=== PATIENT | male | born 1990 | race Caucasian/White ===

== ENCOUNTER 2021-07-13 08:00 | Outpatient (RCR) | payer OTHER, SELFPAY ==
--- NOTE | 2021-06-29 09:50 | HP.PTEVAL ---
Patient's Visit Information DEONNA MCDANIEL is a 31 year old M referred to Physical Therapy by Dr. Lori Peterson MD with a diagnosis of R hip pain. Date of Evaluation: 06/29/21 Physical Therapist: Robles Mejia, PT, ATC - Visit Plan Frequency: 1x/Week Duration: 2 Weeks Plan: Issued and instructed pt on HEP of R LE stretches. Pt is to continue with them independently for 2 weeks and then follow up if needed for further instruction. - Subjective Pt reports he has had R hip pain since March of 2021. Pt works for a [employer] and notes he has to carry boxes that he often rests on his R hip, and believes this may have provoked it. 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 Pt reports he feels like he loses power when he attempts to go up hills secondary to pain and weakness. Pt reports he has never had pain like this before. Pt denies sleep difficulty secondary to pain. Pt notes he also feels pain when he is attempting to abduct his R hip. Pt reports no tingling or numbness in LE's. Pt reports difficulty with donning/doffing his shoes at times secondary to pain. Pt reports he has had no diagnostic tests performed at this time. 0/10 pain at rest, 6/10 at worst (when he is running) - Pain R hip Pain Intensity (Out of 10): 0 Pain Intensity Range: 6 - Objective Neuro: B LE sensation is WNL to light touch. B patellar reflex= 2/3. MMT: B LE's are 5/5 throughout. ROM: B LE's are WFL. flexibility: Pt is moderately limited with HS's, hip flexors, and IT band flexibility. SPecial tests: No positive orthopedic tests this date. Pos 90/90 test and obers sign indicating limited HS, IT band, and hip flexor flexibility - Balance/Special Test Scores Lower Extremity Functional Score: 68 - Goals Goal 1:: I with HEP in 2 visits Goal Time Frame: 2 Weeks - Rehabilitation Potential Physical Therapy Diagnosis: Pt has R sugey pain and difficulty with running secondary to limited flexibility in the R LE Rehabilitation Potential: Excellent - Anticipated Interventions Patient/Client Instruction: Educate patient on: Condition, Plan of Care For the Purpose of:: To improve self management Therapeutic Exercise to Include: Flexibilty training For the Purpose of:: To decrease pain, To increase ROM Cryotherapy (ice pack, ice massage): Yes For the Purpose of:: To decrease pain Thank you for the opportunity to evaluate your patient. For Medicare and Medicare HMO plans, please review the plan of care and approve it. It will need to be FAXED BACK to us at [phone] for Medicare purposes. For Medicare only, by signing this I certify the plan of care. Please let me know if there are questions or concerns regarding this plan of care. Physician Signature: Date:
--- NOTE | 2021-09-20 10:09 | HP.PT.NRP ---
DEONNA MCDANIEL was seen in my office for initial evaluation on 06/29/21. The following Plan of Care was established for this patient: Initial Frequency: 1x/Week Initial Duration: 2 Weeks Patient/Client Instruction: Educate patient on: Condition, Plan of Care For the Purpose of:: To improve self management Therapeutic Exercise to Include: Flexibilty training For the Purpose of:: To decrease pain, To increase ROM Cryotherapy (ice pack, ice massage): Yes For the Purpose of:: To decrease pain This patient was last seen in our office . Pertinent comments regarding their Physical therapy will appear below: Pt was treated for 2 PT visits for R hip pain through the date of 07/13/21. Pt has not returned today and is therefore discontinued at this time. At this point I will be discontinuing this patient from physical therapy. I would be happy to see this patient again in the future if found appropriate by the physician. Thank you! Robles Mejia, PT, ATC Balance/Gait/Functional tests - Balance/Special Test Scores Lower Extremity Functional Score: 68
== END 2021-07-13 19:00 | disposition home or self-care (01) ==
LOC: PT 08:00
PROVIDERS: PCP Family Medicine; Referring Provider Family Medicine; Visit Provider Family Medicine
DX: M76.30 Iliotibial band syndrome, unspecified leg (principal)
CPT/HCPCS: 97110; 97161; 97530

== ENCOUNTER 2021-10-28 10:33 | Outpatient (CLI) | payer OTHER, SELFPAY ==
--- NOTE | 2021-10-28 10:37 | RAD_ITS ---
STUDY: X-RAY - LEFT ANKLE REASON FOR EXAM: Male, 31 years old. Heel pain. TECHNIQUE: 3 view(s) of the ankle. COMPARISON: None. FINDINGS: Normal visualized distal tibia and fibula. Normal medial and lateral malleoli. Normal tibiotalar articulation and ankle mortise. Os trigonum, a normal variant. Moderate-sized inferior calcaneal spur. The visualized subtalar, talonavicular, calcaneocuboid and tarsal articulations are normal. The soft tissue structures are unremarkable. RAD/Ankle min 3 Views IMPRESSION: Os trigonum, a normal variant. Moderate-sized calcaneal spur. No acute abnormality or erosive changes. Electronically Signed: Isaac Giles MD at 11:02 EST ,
--- NOTE | 2021-10-28 10:38 | RAD_ITS ---
STUDY: X-RAY - LEFT FOOT CLINICAL: Male, 31 years old. Heel pain. TECHNIQUE: 3 view(s) of the foot. COMPARISON: None. FINDINGS: Moderate-sized inferior calcaneal spur. Os trigonum, a normal variant. Normal metatarsi. Mild arthrosis of the MTP and IP joints. The soft tissue structures are unremarkable. RAD/Foot min 3 Views IMPRESSION: Moderate-sized inferior calcaneal spur. Mild arthrosis of the MTP and IP joints. No acute abnormality or erosive changes. Electronically Signed: Isaac Giles MD at 11:06 EST ,
== END 2021-10-28 23:59 | disposition home or self-care (01) ==
LOC: MTRAD 10:35
PROVIDERS: PCP Family Medicine; Referring Provider Family Medicine; Visit Provider Family Medicine
DX: M76.822 Posterior tibial tendinitis, left leg (principal)
CPT/HCPCS: 73610; 73630

== ENCOUNTER 2021-12-24 07:00 | Outpatient (RCR) | payer OTHER, SELFPAY ==
--- NOTE | 2021-11-26 08:45 | HP.PTEVAL ---
Patient's Visit Information DEONNA MCDANIEL is a 31 year old M referred to Physical Therapy by Dr. Lori Peterson MD with a diagnosis of L plantar fibromatosis. Date of Evaluation: 11/26/21 Physical Therapist: Robles Mejia, PT, ATC - Visit Plan Frequency: 2x /Week Duration: 3 Weeks Plan: L foot DTR, manual stretching and mobs, ECC strengthening, US, and HEP - Subjective Pt reports he was descending stairs in September of this year when his foot slipped off one step and his heal slammed into the next step. Pt reports he was in pain for a couple of days, and then the pain seemed to go away for a little while. However, the pain returned shortly after wards and has remained since. Pt notes he is an avid runner, and notes some days he can run without pain, while other days the pain is to great to run. Pt reports the pain is located on the heel and in the mid plantar fascia regions. Pt reports he had x-rays which revealed no fractures at this time. Pt reports he has been taking Aleve and meloxicam which have provided minimal relief. Pt reports occasional sleep difficulty secondary to pain. No pain on the R foot. 2/10 pain at rest, 7/10 pain at rest (he is not able to walk at that time) - Pain L plantar fascia Pain Intensity (Out of 10): 2 Pain Intensity Range: 7 - Objective Neuro: B LE sensation is WNL to light touch. ROM: B ankle DF= 10, PF= 65. MMT: B ankles are 5/5 throughout. Gait: Pt stands with pronation of B feet. Pt demonstrates earyl pronation with stance phase and minimal heel strike - Balance/Special Test Scores Lower Extremity Functional Score: 58 - Goals Goal 1:: Decrease L foot pain x 50% to aid with sleep Goal Time Frame: 2-4 Weeks Goal 2:: Increase L ankle DF ROM x 5 degrees to aid with decreasing pain Goal Time Frame: 2-4 Weeks Goal 3:: I with HEP Goal Time Frame: 2-4 Weeks - Rehabilitation Potential Physical Therapy Diagnosis: Pt has L heel and foot pain secondary to L plantar fibromatosis Rehabilitation Potential: Good - Anticipated Interventions Patient/Client Instruction: Educate patient on: Condition, Plan of Care For the Purpose of:: To improve self management Therapeutic Exercise to Include: Strength training, Balance training, Flexibilty training, Passive ROM, Active ROM For the Purpose of:: To decrease pain, To increase ROM Manual Therapy Techniques to Include: Mobilization, Soft tissue mobilization For the Purpose of:: To decrease pain, To increase ROM Ultrasound (thermal/non thermal): Yes For the Purpose of:: To decrease pain Thank you for the opportunity to evaluate your patient. For Medicare and Medicare HMO plans, please review the plan of care and approve it. It will need to be FAXED BACK to us at [phone] for Medicare purposes. For Medicare only, by signing this I certify the plan of care. Please let me know if there are questions or concerns regarding this plan of care. Physician Signature: Date:
--- NOTE | 2021-12-24 07:32 | HP.PTDCSUM ---
It has been my pleasure to treat DEONNA MCDANIEL referred by Dr. Lori Peterson MD, with the diagnosis of L plantar fibromatosis for a total of 7 visit(s). Discharge Date: Please see the following information for a summary of their discharge status. Subjective: I recieved a cortisone injection yesterday, and I do feel a little better today L plantar fascia Pain Intensity (Out of 10): 0 % Improvement: 30 Objective/Function: L foot pain is 0/10 post injection. L ankle DF ROM 15 degrees. Pt is I with HEP Goal 1:: Decrease L foot pain x 50% to aid with sleep Goal Progress: Goal Met Goal 2:: Increase L ankle DF ROM x 5 degrees to aid with decreasing pain Goal Progress: Progressing Goal 3:: I with HEP Goal Progress: Goal Met Plan: Discharge to HEP If there are questions or concerns regarding this patient's physical therapy, please feel free to call me at [phone]. Thank you for the referral of this patient. Sincerely, Robles Mejia, PT, ATC Balance/Gait/Functional tests - Balance/Special Test Scores Lower Extremity Functional Score: 75
== END 2021-12-24 08:35 | disposition home or self-care (01) ==
LOC: PT 07:00
PROVIDERS: PCP Family Medicine; Referring Provider Family Medicine; Visit Provider Family Medicine
DX: M72.2 Plantar fascial fibromatosis (principal)
CPT/HCPCS: 97035; 97140; 97161; 97164

== ENCOUNTER 2022-01-20 20:11 | Emergency (ER) | payer OTHER, SELFPAY ==
[2022-01-20 20:12] VITALS: BP 124/64; PULSE 70; RESP 16; TEMP 37.2; O2SAT 100; BMI 24.0
--- NOTE | 2022-01-20 20:45 | CT_ITS ---
STUDY: CT BRAIN WITHOUT CONTRAST REASON FOR EXAM: Male, 31 years old. Pain RADIATION DOSAGE (If Supplied By Facility): CTDIvol = ( 44.99 ) mGy, DLP = ( 863.60 ) mGycm TECHNIQUE: Transaxial CT imaging of the brain was performed without administration of intravenous contrast material. Individualized dose optimization techniques were used for this CT. COMPARISON: No relevant priors. FINDINGS: Normal soft tissue structures. Normal calvarium. Normal size ventricles and extra-axial spaces for the patient''s age. Normal white matter tracts of the cerebral hemispheres. Normal basal ganglia and thalami. Normal brainstem. Normal cerebellum. There is no intracranial hemorrhage. There are no findings of an acute ischemic infarction. Normal visualized paranasal sinuses. CT/Brain/Head without Contrast IMPRESSION: No acute abnormal intracranial finding. Electronically Signed: Jonathan Reagan MD at 21:41 EDT ,
[2022-01-20] MEDS: 0.9% Normal Saline 1,000 ML 999 ML IV (20:58)
[2022-01-20] MEDS: DiphenhydrAMINE 50 MG/ML Syringe 25 MG IV (20:58)
[2022-01-20] MEDS: Metoclopramide 10 MG/2 ML Vial IV (20:58)
[2022-01-20 21:06] VITALS: TEMP 39.3
[2022-01-20 21:15] LABS: Absolute Lymphocyte Count 0.34 X10^3/uL (0.83-4.51); Absolute Neutrophil Count 5.7 X10^3/uL (2.0-7.7); Basophil# 0.04 X10^3/uL; Basophil% 0.6 % (0-1); Eosinophil# 0.02 X10^3/uL; Eosinophils% 0.3 % (0-5); Hematocrit 42.3 % (40-54); Hemoglobin 14.5 g/dL (13.0-16.5); Lymphocyte # 0.34 X10^3/ul (0.83-4.51); Lymphocyte % 4.7 % (19-41); Mean Corp Hgb Conc 34.3 g/dL (32-36); Mean Corpuscular Hgb 32.7 pg (27.0-32.0); Mean Corpuscular Volume 95.3 fL (80-94); Mean Platelet Vol. 9.5 fl (6.2-12.0); Monocyte# 1.11 X10^3/uL; Monocyte% 15.4 % (0-10); NRBC Flagged by Analyzer 0 % (0-5); Neutrophil # 5.71 X10^3/uL (2.7-7.7); Neutrophil % 78.9 % (47-70); POSITIVE DIFFERENTIAL YES; Platelet Count 229 K/mm3 (150-450); RBC Distribution Width CV 11.9 % (11.6-14.6); RBC Distribution Width SD 41.7 fl (35.1-43.9); Red Blood Count 4.44 M/mm3 (4.6-6.2); White Blood Count 7.2 K/mm3 (4.4-11.0)
[2022-01-20 21:24] LABS: Differential Indicated SCAN CRITERIA MET
--- NOTE | 2022-01-20 21:26 | EDS_ITS ---
HPI History of Present Illness Chief Complaint: Headache Informant: patient Onset/Context/Timing Onset: Today Context: Gradual Timing: Continuous Quality -Headache: Positive for Similar Prior Headaches Location: Generalized Worsened by: Nothing Relieved by: Nothing Associated Symptoms/Injury Associated Symptoms: Positive for Fever, Nausea and Sore Throat; Negative for Vomiting, Sinus Pressure, Numbness, Tingling, Preceding Aura, Visual Changes, Blurred Vision, Photophobia and Visual Loss Narrative Narrative: Patient presents with a headache that began yesterday. Patient states it is gradually getting worse. Patient states it is generalized over his entire head. Patient states it feels similar to prior migraine headaches. Patient states he has not had a migraine in several years. Patient does admit to a fever. Patient states his temperature was 101 today at home. Patient admits to a sore throat. Patient admits to nausea but denies any vomiting. Patient denies any photophobia or scotoma. Patient states he felt dizzy at home. Patient states he does have some pain in his neck and back. Patient is able to bend his chin down to his chest without difficulty. PFSH PFSH Medical History Migraines Non-smoker Allergy/AdvReac Type Severity Reaction Status Date / Time No Known Allergies Allergy Verified 01/20/22 20:13 Surgical History no surgical history no surgical history Social History Smoking Status: Never smoker ROS ROS ED Constitutional Constitutional ED: Reports fever(s); Denies chills Eyes Eyes: Denies blurry vision or change in vision ENT ENT ED: Reports sore throat; Denies rhinorrhea Cardiovascular Cardiovascular: Denies chest pain or palpitations Respiratory/Chest Respiratory/Chest: Denies cough or dyspnea Gastrointestinal Gastrointestinal: Reports nausea; Denies vomiting Genitourinary Genitourinary ED: Denies dysuria or hematuria Musculoskeletal Musculoskeletal: Reports back pain and neck pain Integumentary Denies abscess or rash Neurologic Neurologic: Reports headache(s); Denies weakness Allergic/Immunologic Allergic/Immunologic ED: Denies mouth swelling or urticaria EXAM Physical Exam Const Vital Signs: 01/20/22 20:12 01/20/22 21:06 Temperature 99.0 F 102.8 F H Temperature Source Temporal Oral Pulse Rate 70 Respiratory Rate 16 Blood Pressure 124/64 H Blood Pressure Mean 84 Pulse Ox 100 Oxygen Delivery Method Room Air Positive well nourished and well developed General Appearance ED: well developed and NAD HEENT Reports moist mucous membranes Neck supple, no meningeal signs and no JVD General: Negative for tenderness Resp normal respiratory effort and clear to auscultation bilaterally Cardio regular rate and regular rhythm GI non-tender and non-distended Auscultation: normoactive bowel sounds Palpation: soft Neuro oriented x3, CN's II-XII intact bilaterally and no sensory deficits noted Sensorium / Orientation: awake and alert Speech: speech normal Motor Exam: strength 5/5 throughout Psych mental status grossly normal MDM MDM MDM Narrative Medical decision making narrative: Patient was given IV fluids, Reglan, and Benadryl. Patient did develop a fever up to 102.8 here. Patient was given a dose of Tylenol for that. CBC was within normal limits. Basic metabolic profile was within normal limits. CT scan of the brain was obtained. There is no acute intracranial abnormality. This was interpreted by the radiologist and reviewed by myself. COVID-19 rapid antigen was obtained and was positive. Influenza A and influenza B swabs were obtained and were negative. Patient was advised of his findings. Patient was instructed to take Tylenol or ibuprofen as needed for his aches or fevers. Patient was instructed to follow-up with his primary care physician in 5 to 7 days. Patient understood and was agreeable with the plan. All questions were answered. Lab Data Attestation: I reviewed the patient's lab results. Labs: Laboratory Results - last 24 hr 01/20/22 01/20/22 20:20 20:20 WBC 7.2 RBC 4.44 L Hgb 14.5 Hct 42.3 MCV 95.3 H MCH 32.7 H MCHC 34.3 RDW Std Deviation 41.7 RDW Coeff of Calderon 11.9 Plt Count 229 MPV 9.5 Immature Gran % (Auto) 0.100 Neut % (Auto) 78.9 H Lymph % (Auto) 4.7 L [place] % (Auto) 15.4 H Eos % (Auto) 0.3 Baso % (Auto) 0.6 Absolute Neuts (auto) 5.7 Absolute Lymphs (auto) 0.34 L Nucleated RBC % 0 Differential Comment SEE COMMENT Platelet Estimate ADEQUATE RBC Morphology N CHROM Anisocytosis RARE Macrocytosis RARE Sodium 137 Potassium 3.9 Chloride 101 Carbon Dioxide 26.0 Anion Gap 10 BUN 19 H Creatinine 1.04 Estim Creat Clear Calc 105.29 Est GFR (MDRD) Af Amer 106 Est GFR (MDRD) Non-Af 88 BUN/Creatinine Ratio 18.3 Glucose 86 Calcium 9.1 Radiography Diagnostic Testing: Clinical Impression(s) from Imaging Studies Brain CT 01/20/22 20:45 IMPRESSION: No acute abnormal intracranial finding. Electronically Signed: Jonathan Reagan MD at 21:41 EDT , Discharge Plan Triage Chief Complaint: Headache ED Provider: Ry Estrada Dx/Rx/DC Orders Clinical Impression: COVID-19 Instructions: Coronavirus Disease 2019 (COVID-19): Caring for Yourself or Others, ED Headache Unspecified Primary Care Provider: Lori Peterson Referrals: Lori Peterson MD [Primary Care Provider] - 5-7 Days Disposition Disposition: Home, Self Care
[2022-01-20 21:28] LABS: Anion Gap 10 (5-15); BUN 19 mg/dL (7-18); BUN/Creat Ratio 18.3 RATIO (10-20); Calcium,Total 9.1 mg/dL (8.5-10.1); Chloride 101 mmol/L (98-107); Creatinine, Serum 1.04 mg/dL (0.70-1.30); EST Glomerular Filtration Rate 88 mL/min (>60); Est Glom Filt Rate - Afr Amer 106 mL/min (>60); Estimated Creatinine Clearance 105.29 ml/min; Glucose 86 mg/dL (74-106); Potassium 3.9 mmol/L (3.5-5.1); Sodium Level 137 mmol/L (136-145)
[2022-01-20] MEDS: Acetaminophen 500 MG Tablet 1000 MG PO (21:35)
[2022-01-20 21:46] LABS: Platelet Estimate ADEQUATE (ADEQ)
[2022-01-20 21:47] LABS: Anisocytosis RARE; Macrocytosis RARE; Red Cell Morphology N CHROM NORMAL (NORM C&C)
[2022-01-20 22:29] VITALS: BP 120/72; PULSE 98; RESP 18; TEMP 38.3; O2SAT 97
== END 2022-01-20 22:31 | disposition home or self-care (01) ==
PROVIDERS: Emergency Provider Emergency Medicine; PCP Family Medicine; Visit Provider Emergency Medicine
DX: U07.1 COVID-19 (principal)
CPT/HCPCS: 70450; 80048; 85025; 87428; 96361; 96374; 96375; 99283; J7030; A4216

== ENCOUNTER 2023-11-05 12:01 | Emergency (ER) | payer OTHER, SELFPAY ==
[2023-11-05 12:02] VITALS: BP 123/82; PULSE 61; RESP 18; TEMP 36.6; O2SAT 100; BMI 25.2
--- NOTE | 2023-11-05 12:11 | EDS_ITS ---
HPI <ALYSE Patel - Last Filed: 11/05/23 13:26> History of Present Illness Chief Complaint: Cough Narrative Narrative: 33-year-old male with no PMH has had 1 week of subjective fever, chills, congestion, productive cough, nausea and bodyaches. His coworker had influenza B. He has tried [id number] Mucinex and Tylenol/Aleve. He took an old Z- Kevin he had on hand and thought his congestion/cough improved but now he is coughing again. No shortness of breath. PFSH <ALYSE Patel - Last Filed: 11/05/23 13:26> PFSH Medical History Migraines Non-smoker Home Medications ondansetron 4 mg disintegrating tablet 4 mg PO Q8H PRN PRN Nausea #12 tabs 11/05/23 [Rx Last Taken Unknown] Allergy/AdvReac Type Severity Reaction Status Date / Time No Known Allergies Allergy Verified 11/05/23 12:03 Social History Smoking Status: Never smoker ROS <ALYSE Patel - Last Filed: 11/05/23 13:26> ROS ED ROS Narrative Constitutional: Positive for fever, chills, malaise. CVS: Negative for chest pain. Respiratory: Positive for cough. GI: Positive for nausea. No abdominal pain, vomiting. EXAM <ALYSE Patel - Last Filed: 11/05/23 13:26> Physical Exam Narrative Exam Narrative: CONST: Patient sitting in no acute distress. EYES: Normal inspection. ENT: Moist mucous membranes, mucus drainage in posterior oropharynx, no tonsillar swelling or exudate, midline uvula. Nares clear. NECK: Normal inspection. No meningismus. RESP: No respiratory distress, CTAB. CVS: Regular rate and rhythm, no murmur, no gallop. SKIN: Color normal, no rash, warm, dry, intact. EXTREMITIES: Normal appearance, no pedal edema. NEURO: Oriented x4. PSYCH: Normal affect. Const Vital Signs: 11/05/23 12:02 11/05/23 12:22 11/05/23 13:26 Temperature 97.9 F 98.3 F Temperature Source Temporal Pulse Rate 61 64 Respiratory Rate 18 16 Respiratory Effort Normal Non-Labored Respiratory Depth Normal Respiratory Pattern Normal Blood Pressure 123/82 H 118/80 Blood Pressure Mean 95 92 Pulse Ox 100 98 Oxygen Delivery Method Room Air Room Air <Dr. Kevon Hyde MD - Last Filed: 11/05/23 15:16> Physical Exam Const Vital Signs: 11/05/23 12:02 11/05/23 12:22 11/05/23 13:26 Temperature 97.9 F 98.3 F Temperature Source Temporal Pulse Rate 61 64 Respiratory Rate 18 16 Respiratory Effort Normal Non-Labored Respiratory Depth Normal Respiratory Pattern Normal Blood Pressure 123/82 H 118/80 Blood Pressure Mean 95 92 Pulse Ox 100 98 Oxygen Delivery Method Room Air Room Air MDM <ALYSE Patel - Last Filed: 11/05/23 13:26> [facility] Narrative Medical decision making narrative: History gathered from: Patient, parents Patient has had 1 week of viral symptoms?congestion, cough, nausea. Positive sick contacts at work. He appears well and nontoxic and is afebrile with normal vital signs. His exam is benign. Lungs are clear. Viral swab is positive for influenza B. I discussed symptomatic management and prescribed Zofran as needed. There is no indication for chest x-ray. He was discharged in stable condition. <Dr. Kevon Hyde MD - Last Filed: 11/05/23 15:16> [facility] Narrative Medical decision making narrative: History gathered from: Patient, parents Patient has had 1 week of viral symptoms?congestion, cough, nausea. Positive sick contacts at work. He appears well and nontoxic and is afebrile with normal vital signs. His exam is benign. Lungs are clear. Viral swab is positive for influenza B. I discussed symptomatic management and prescribed Zofran as needed. There is no indication for chest x-ray. He was discharged in stable condition. I have personally performed a face to face assessment of the patient and have reviewed the GRACE Note. I performed a substantive portion of the visit including all aspects of the following. My vale findings include: History is remarkable for flulike symptoms uneventful week. Patient been unable to run. He is a runner. He complains of myalgias arthralgias headache and fever. Is not had a fever in the last 24 to 48 hours. He has been in contact with other people has not been ill. He denies GI symptoms. Exam is is unremarkable. He appears ill but nontoxic. HEENT exam is remarkable for clear rhinorrhea. Lungs are clear auscultation with symmetric breath sounds. Heart is regular. Rate is normal there is no murmur, gallop or rub. Abdomen soft nontender. There is no dermatologic lesions noted. Is alert and orient x 3. Medical Decision Making suspect patient has a viral illness. She has not been exposed to individuals with COVID and influenza rapid antigen for COVID and and influenza were obtained. Patient test was positive for influenza. He is outside the window for treatment. Treatment is symptomatic at this point. Other additions or changes: [None] Discharge Plan Triage Chief Complaint: Cough ED Midlevel Provider: Megan Navarrete ED Provider: Kevon Hyde Dx/Rx/DC Orders Clinical Impression: Influenza B, Mild dehydration Instructions: ED Influenza (Adult) Prescriptions: New ondansetron 4 mg tablet,disintegrating 4 mg PO Q8H PRN PRN (Reason: Nausea) Qty: 12 0RF Primary Care Provider: Care Physician,No Primary Referrals: Lori Peterson MD [Med Staff - [facility]] - Activity Restrictions/Additional Instructions: You have influenza B which is a viral illness. This is treated with rest, fluids, Tylenol and Motrin. I prescribed Zofran to take as needed for nausea. Symptoms usually resolve within 7 to 10 days but can last longer. Disposition Disposition: Home, Self Care Discharge Date/Time: 11/05/23 13:27
[2023-11-05] MEDS: Ondansetron ODT 4 MG Tablet PO (12:17)
[2023-11-05 12:22] VITALS: O2SAT 97
--- OUTSIDE RECORDS SUMMARY | 2023-11-05 12:40 | XMS RPT_ITS | CCD ---
Author Name Unknown Address [address] [place] [address] Organization [facility] Care Team Providers Care Pet Counselor Name Role Phone JUNI LARSEN Unavailable Unavailable TESTJUNI HEREDIA Unavailable Unavailable Unavailable Primary Care Provider Unavailabl e SELF, SELF Referring Unavailable LUPE PETERSEN Attending Unavailable Problems Problem Classification Problem Date Documented Da te Episodic/Chronic Blindness and vision defects (3 sources) Blurring of visual image; Translations: [Other visual disturbances] Onset: 10-21-2022 Episodic Unclassified (1 source) Pain, unspecified; Translations: [Pain, unspecified] Onset: 02-12-2018 Unclassified (1 source) Unknown / UNK(Unknown) Onset: 02-12-2018 Results Test Name Value Interpretation Reference Range Facil ity Encounters Encounter Date Encounter Type Care Provider Facility Start: 10-21-2022 ambulatory SELF SELF Facility:[facility] Start: 10-21-2022 End: 10-21-2022 Patient encounter procedure Lupe Petersen MD Work Phone: [facility] Procedures Date Procedure Procedure Detail Performing Clinician Start: 10-21-2022 Computerized corneal topography uni/bi Lupe Petersen MD Work Phone: Plan of Treatment Date Care Activity Detail Author Start: 05-05-2022 Influenza vaccination INFLUENZA VACC INE (#1) [facility] Start: 09-15-2021 COVID-19 VACCINE (2 - Booster for Mily series) COVID-19 VACCINE (2 - Booster for Mily series) [facility] Start: 2008 Third diphtheria, tetanus and acellular pertussis (DTaP) vaccination TDAP (ADULT) [facility] Start: 2004 HIV screening HIV SCREENING DISCUSSION [facility] Start: 1989 Hepatitis C screening HEPATITI S C VIRUS SCREENING [facility] Start: 1989 Tetanus vaccination TETANUS [facility] Payers Date Payer Category Payer Unknown PRE PAID ELECTIV E SELF PAY PRE PAID ELECTIVE SELF PAY [id number] 2019-Present [id number] Social History Date Type Detail Facility Start: 06-11-2019 Tobacco smoking stat us NYIS Never smoked tobacco [facility] Start: 06-11-2019 Tobacco use and exposure Smokeless tobacco non-user [facility] Start: 1989 Sex Assigned At Not on file O ENRIQUE [facility] Start: 10-11-2022 End: 10-21-2022 Exposure to SARS-CoV-2 (event) Not sure [facility] History of Present illness Narrative 10-21-2022 Rafaela Tijerina - 10/21/2022 10:00 AM Hemant Petersen MD - 10/21/2022 10:00 AM EST Note Date & Type Note Facility 10-21-2022 History of Presen t illness Narrative REASON FOR VISIT Royce Badillo presents to clinic today for a CIRCULATION ANALYST EVAL visit. Chief Complaint Refractive Surgery Evaluation HISTORY OF PRESENT ILLNESS HPI - History of past eye problems: no - Dryness: sometimes - Halos/Glare: no -Contacts:Has not worn in the last 2 weeks -Dominant eye: OD Motivation for Lasik: Pt does not want to be dependent on glasses/CL. Hobbies/Active Lifestyle: Last edited by Rafaela Tijerina on 10/21/2022 10:08 AM. Allergies, medications & history reviewed & updated by Rafaela Tijerina 15 minutes of face to face time was spent with patient performing the software test technician work of this visit. Referring Physician: Impression: 1. Refractive Surgery Evaluation: Refractive error is within acceptable range OU. Pachymetry is within the acceptable range OU. Corneal topography: z (NC) CORNEAL TOPOGRAPHY OU* Inferior steepening OU Royce Badillo is not a good candidate for refractive surgery. documented in this encounter [facility] Evaluation note Note Date & Type Note Facility documented in this encounter [facility] Summary Purpose Family History No Family History Records FoundNo Family History Records Found Advance Directives No Advanced Directives Records FoundNo Advanced Directives Records Found Additional Source Comments (unrecognized sect ion and content) No Status Records FoundNo Status Records Found INFORMATION SOURCE (unrecogn ized section and content) DATE CREATED AUTHOR AUTHOR'S ORGANIZ ATION 10/22/2022 [facility] Reason for Visit (unrecogniz ed section and content) FOR RECORDS PERTAINING TO PATIENTS WHO ARE OR HAVE BEEN ENROLLED IN A CHEMICAL DEPENDENCY/SUBSTANCEABUSE PROGRAM, SOME INFORMATION MAY BE OMITTED. This clinical summary was aggregated from multiple sources. Caution should be exercised in using it in the provision of clinical care. This summary normalizes information from multiple sources, and as a consequence, information in this document may materially change the coding, format and clinical context of patient data. In addition, data may be omitted in some cases. CLINICAL DECISIONS SHOULD BE BASED ON THE PRIMARY CLINICAL RECORDS. [employer] provides no warranty or guarantee of the accuracy or completeness of information in this document.
[2023-11-05 13:26] VITALS: BP 118/80; PULSE 64; RESP 16; TEMP 36.8; O2SAT 98
== END 2023-11-05 13:27 | disposition home or self-care (01) ==
PROVIDERS: Emergency Provider Emergency Medicine; Visit Provider Emergency Medicine
DX: J10.1 Influenza due to other identified influenza virus with other respiratory manifestations (principal); E86.0 Dehydration
CPT/HCPCS: 87631; 99282

== ENCOUNTER → 2024-07-04 | Outpatient (CLI) | payer OTHER, SELFPAY ==
--- NOTE | 2024-07-04 14:52 | RAD_ITS ---
HISTORY: RIGHT LEG NUMBNESS/WEAKNESS IN GREAT TOE. TECHNIQUE: XR Spine Lumbar Min 4 Views. COMPARISON: None. FINDINGS: VERTEBRAE: Vertebral body heights preserved. Posterior elements appear intact. ALIGNMENT: No significant anterior or posterior subluxation. INTERVERTEBRAL DISCS: Mild degenerative endplate changes with intervertebral disc space narrowing of L5-S1. RAD/L/S Spine Min 4 Views IMPRESSION: No acute fracture or dislocation identified in the lumbar spine. Very mild degenerative change. Electronically Signed: Kaley Gaffney MD at 9:10 EDT ,
== END | disposition home or self-care (01) ==
PROVIDERS: PCP Family Medicine; Referring Provider Family Medicine; Visit Provider Family Medicine
DX: M54.16 Radiculopathy, lumbar region (principal); R20.0 Anesthesia of skin; R53.1 Weakness
CPT/HCPCS: 72110

== ENCOUNTER → 2024-09-27 | Outpatient (CLI) | payer OTHER, SELFPAY ==
--- NOTE | 2024-09-27 15:35 | MRI_ITS ---
EXAM: MR LUMBAR SPINE WITHOUT INTRAVENOUS CONTRAST CLINICAL INDICATION: pain TECHNIQUE: Multiplanar and multisequence MR images of the lumbar spine without intravenous contrast. COMPARISON: No relevant prior studies available. FINDINGS: VERTEBRAE: See below. SPINAL CORD: Normal. Normal position and signal intensity of the conus medullaris. SOFT TISSUES: Normal. DISCS/SPINAL CANAL/NEURAL FORAMINA: L1-L2: Normal disc height and morphology. Normal spinal canal and lateral recesses. Normal neuroforamina. L2-L3: Normal disc height and morphology. Normal spinal canal and lateral recesses. Normal neuroforamina. L3-L4: Normal disc height and morphology. Normal spinal canal and lateral recesses. Normal neuroforamina. L4-L5: Mild disc space narrowing. Central disc protrusion, ligamentous hypertrophy and facet arthropathy result in moderate spinal stenosis and mild to moderate narrowing of the neural foramina. L5-S1: Normal disc height and morphology. Normal spinal canal and lateral recesses. Normal neuroforamina. MRI/Spine Lumbar (Routine) IMPRESSION: Central L4-5 disc protrusion resulting in moderate spinal stenosis. Electronically Signed: Tai Chavez MD at 16:40 EST ,
== END | disposition home or self-care (01) ==
LOC: MRI 15:34
PROVIDERS: PCP Family Medicine; Referring Provider Student in an Organized Health Care Education/Training Program; Visit Provider Student in an Organized Health Care Education/Training Program
DX: M54.16 Radiculopathy, lumbar region (principal)
CPT/HCPCS: 72148

== ENCOUNTER 2024-10-03 09:00 | Outpatient (RCR) | payer OTHER, SELFPAY ==
--- NOTE | 2024-09-10 11:38 | HP.PTEVAL_ITS ---
Patient's Visit Information Visit Information Visit Information: DEONNA MCDANIEL is a 34 year old M referred to Physical Therapy by ALYSE Hoyos with a diagnosis of LUMBAR RADICULOPATHY. Date of Evaluation: 09/10/24 Physical Therapist: Miguel Branham, PT, Cert MDT, OCS Visit Plan Frequency: 2x /Week Duration: 4 Weeks Plan: PT INTERVENTIONS ZABRINA EX'S , MANUAL THERAPY ,PROGRESS TO DLS ,POSTURAL EX'S AND MODALITIES Subjective Subjective: This 34 y/o male presents to physical therapy with lumbar radiculopathy. Patient has had lumbar radiculopathy May after he did a 100 mile bike ride. 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 Since then he reports low back pain that is worse on the right side. The pain radiate into the back of his right leg and he reports numbness and tingling into the top of his foot and big toe.Seen PA back DR Will had x-rays showed Mild degenerative endplate changes with intervertebral disc space narrowing of L5-S1. Patient also order MRI end of month and pain management . Prescribed meloxicam. Patient located hamstring to calf to foot. Patient aggravating bending,lifting ,sitting and standing. Alleviating factors moving and walking okay running. Patient has paresthesia/tingling right leg. Patient was in PT prior with hamstrings symptoms which could been sciatica. Coughing /sneezing-. Bowel/bladder-. Sleeping okay. Patient condition affects QOL and running/hobbies. Patient goals no pain. SOCIAL: VOCATION: Own business Pain Right Lower Extremity: Pain Intensity (Out of 10): 4 Pain Intensity Range: 10 Right Back: Pain Intensity (Out of 10): 1 Pain Intensity Range: 10 Objective Objective: POSTURE: WNL NEURO: denies paresthesia/tingling ,reflexes C5-6-7 2/3 PALAPTION: unremarkable GAIT: reciprocal pattern with mild decrease stance Right leg stance MMT: quads/hams/hip 4/5 ,ankle 5/5 LUMBAR ROM: flexion min loss symptom sin calf ,extension min loss ,side glides min loss Special Tests L/S Slump test left side: Negative L/S Slump test right side: Positive L/S Left Straight Leg Raise: Negative L/S Right Straight Leg Raise: Negative Lumbar Standing: Flexion - Mechanical Response: No effect Lumbar Standing: Flexion - Symptoms During Testing: Increases Lumbar Standing: Flexion - Symptoms After Testing: Worse Lumbar Standing: Extension - Mechanical Response: No effect Lumbar Standing: Extension - Symptoms During Testing: Decreases Lumbar Standing: Extension - Symptoms After Testing: Better Lumbar Standing: Right Side Glides - Mechanical Response: No effect Lumbar Standing: Right Side [place] - Symptoms During Testing: No effect Lumbar Standing: Right Side [place] - Symptoms After Testing: No effect Lumbar Standing: Left Side [place] - Mechanical Response: No effect Lumbar Standing: Left Side [place] - Symptoms During Testing: No effect Lumbar Standing: Left Side [place] - Symptoms After Testing: No effect Balance/Special Test Scores Oswestry Low Back Score: 18 Goals Goal 1:: Patient to I with HEP for back Goal Time Frame: 2-4 Weeks Goal 2:: Patient to be I with posture/body mechanics Goal Time Frame: 2-4 Weeks Goal 3:: Patient to improve lumbar ROM for function of recovery to lift and ride bike Goal Time Frame: 2-4 Weeks Goal 4:: Patient to improve back oswestry score by 5 points to improve QOL and function Goal Time Frame: 4-6 Weeks Goal 5:: Patient to demonstrate 75% improvement with bike and running and job demands Goal Time Frame: 2-4 Weeks Rehabilitation Potential Physical Therapy Diagnosis: This patient has possible disc derangement with pain with motion testing and positioning worse with flexion and better with extension thus benefit from sKilled PT Rehabilitation Potential: Good Anticipated Interventions Patient/Client Instruction: Educate patient on: Condition and Plan of Care For the Purpose of:: To decrease pain, To increase ROM, To improve muscle performance and motor function, To increase tolerance to activity/condition/position, To improve ability of physical actions for home/community/work/leisure, To improve health of tissue, To decrease soft tissue restriction, To increase flexibility/ROM, To improve endurance and To reduce risk of recurrence Therapeutic Exercise to Include: Strength training, Body mechanics, Postural training, Flexibilty training, Dynamic Lumbar Stabilization and Zabrina Exercises For the Purpose of:: To decrease pain, To increase ROM, To improve muscle performance and motor function, To decrease level of supervision to perform tasks, To improve health of tissue, To decrease soft tissue restriction and To increase flexibility/ROM Manual Therapy Techniques to Include: Mobilization For the Purpose of:: To decrease pain, To increase ROM, To increase oxygenation perfusion, To improve health of tissue, To decrease soft tissue restriction and To increase flexibility/ROM TENS: Yes IF ES: Yes Thermo therapy (hot pack): Yes Ultrasound (thermal/non thermal): Yes For the Purpose of:: To decrease pain Text: Thank you for the opportunity to evaluate your patient. For Medicare and Medicare HMO plans, please review the plan of care and approve it. It will need to be FAXED BACK to us at [phone] for Medicare purposes. For Medicare only, by signing this I certify the plan of care. Please let me know if there are questions or concerns regarding this plan of care. Physician Signature: Date:
--- NOTE | 2025-01-08 09:28 | HP.PT.NRP ---
Patient Information Patient Information: DEONNA MCDANIEL was seen in my office for initial evaluation on 09/10/24. The following Plan of Care was established for this patient: POC Established Initial Frequency: 2x /Week Initial Duration: 4 Weeks Anticipated Interventions Patient/Client Instruction: Educate patient on: Condition and Plan of Care For the Purpose of:: To decrease pain, To increase ROM, To improve muscle performance and motor function, To increase tolerance to activity/condition/position, To improve ability of physical actions for home/community/work/leisure, To improve health of tissue, To decrease soft tissue restriction, To increase flexibility/ROM, To improve endurance and To reduce risk of recurrence Therapeutic Exercise to Include: Strength training, Body mechanics, Postural training, Flexibilty training, Dynamic Lumbar Stabilization and Jennifer Exercises For the Purpose of:: To decrease pain, To increase ROM, To improve muscle performance and motor function, To decrease level of supervision to perform tasks, To improve health of tissue, To decrease soft tissue restriction and To increase flexibility/ROM Manual Therapy Techniques to Include: Mobilization For the Purpose of:: To decrease pain, To increase ROM, To increase oxygenation perfusion, To improve health of tissue, To decrease soft tissue restriction and To increase flexibility/ROM TENS: Yes IF ES: Yes Thermo therapy (hot pack): Yes Ultrasound (thermal/non thermal): Yes For the Purpose of:: To decrease pain Last Seen Last Seen: This patient was last seen in our office . Pertinent comments regarding their Physical therapy will appear below: Patient was seen for PT for lumbar disc bulging broad based ,patient responded positive with with jennifer ex's and education on lifting and posture . At this point I will be discontinuing this patient from physical therapy. I would be happy to see this patient again in the future if found appropriate by the physician. Thank you! Miguel Branham, PT, Cert MDT, OCS Balance/Gait/Functional tests Balance/Special Test Scores Oswestry Low Back Score: 18
== END 2024-10-03 19:00 | disposition home or self-care (01) ==
LOC: PT 09:00
PROVIDERS: PCP Family Medicine; Referring Provider Student in an Organized Health Care Education/Training Program; Visit Provider Student in an Organized Health Care Education/Training Program
DX: M54.16 Radiculopathy, lumbar region (principal)
CPT/HCPCS: 97014; 97110; 97161; 97530; G0283

== ENCOUNTER 2025-02-03 06:50 | Day surgery (SDC) | payer OTHER, SELFPAY ==
[2025-02-03] VITALS (7 sets, daily range): BP systolic 101–116; BP diastolic 72–84; PULSE 53–67; RESP 14–16; TEMP 36.6–37; O2SAT 97–100; BMI 27.0
[2025-02-03] MEDS: MethylPREDNISolone Acetate 80 MG/ML Vial (06:58)
[2025-02-03] MEDS: Lactated Ringers 1,000 ML 15 ML IV (07:19)
--- NOTE | 2025-02-03 07:24 | PCM.PRE.AN2 ---
ASA Classification* ASA Classification ASA Classification: 1 Assessment & Plan Anesthesia* Anesthesia Assessment Anesthesia Assessment: Discussed sedation and/or anesthesia options, risks, benefits, and alternatives with patient/parents/legal guardian/POA. Questions invited. The patient/parents/legal guardian/POA seems to understand and agrees to proceed with anesthesia plan. Reviewed the physical assessment, medical history, allergy history and patient home medications list prior to surgery/procedure/anesthetic and documented any changes. Performed airway and anesthesia risk assessments. Anesthesia Type Anesthesia Type: MAC History Source History Obtained from:: Patient and Chart Anesthesia Focused Assessment* Temperature: 97.9 F Pulse Rate: 59 Blood Pressure: 112/79 Respiratory Rate: 16 Pulse Ox: 100 Oxygen Delivery Method: Room Air Airway Assessment Mouth opens: >3 cm Mallampati Score: II Teeth Condition: Intact Neck Range of motion (ROM): Full ROM Focused Labs Anesthesia Preop lab: CBC WBC 7.2 K/mm3 (4.4-11.0) 01/20/22 20:20 01/20/22 RBC 4.44 M/mm3 (4.6-6.2) L 01/20/22 20:20 01/20/22 Hgb 14.5 g/dL (13.0-16.5) 01/20/22 20:20 01/20/22 Hct 42.3 % (40-54) 01/20/22 20:20 01/20/22 Plt Count 229 K/mm3 (150-450) 01/20/22 20:20 01/20/22 CHEMISTRY Potassium 3.9 mmol/L (3.5-5.1) 01/20/22 20:20 01/20/22 Sodium 137 mmol/L (136-145) 01/20/22 20:20 01/20/22 BUN 19 mg/dL (7-18) H 01/20/22 20:20 01/20/22 Creatinine 1.04 mg/dL (0.70-1.30) 01/20/22 20:20 01/20/22 Glucose 86 mg/dL (74-106) 01/20/22 20:20 01/20/22 TSH 0.86 uIU/mL (0.358-3.74) 01/16/17 12:15 01/16/17 COAG Pre-Assessment Diagnosis/Proposed Procedure Planned Operative Procedure(s): RIGHT SIDED LUMBAR TRANSFORAMINAL EPIDURAL STEROID INJECTION L4,L5 S1 Anesthesia History Anesthesia History - spanish interpreter/translator: Anesthesia History - spanish interpreter/translator Hx Hospitalization No 01/29/25 14:05 Any Problems With Anesthesia No: NO SURGERY HX 01/29/25 14:05 Cholinesterase deficiency No 01/29/25 14:05 You/Your Family Experience No 01/29/25 14:05 fever (hyperthermia) with Relationship Recent Exposure to Contagious No 02/03/25 07:09 Disease Does patient have nerve No 01/29/25 14:05 stimulator Patient instructed to have device shut off --Does patient have Pacemaker No 02/03/25 07:09 or ICD? When Was Last Pacemaker Check QUESTION #4 FULL TEXT: You/Your Family Experience fever (hyperthermia) with Anesthesia Last Oral Intake Last Oral intake: Last Oral Intake NPO since 04:00 02/03/25 07:09 Meds taken in AM with sips of No 02/03/25 07:09 water? Meds patient instructed to take am of surgery PONV PONV - spanish interpreter/translator: PONV - spanish interpreter/translator Female No 01/29/25 14:05 HX of Motion Sickness No 01/29/25 14:05 HX of N/V After Surgery No 01/29/25 14:05 Non-Smoker Yes 01/29/25 14:05 Duration of Surgery greater No 01/29/25 14:05 than 60 minutes Number of Risk Factors 1 01/29/25 14:05 PONV Score Low Risk 01/29/25 14:05 Height & Weight Height & Weight: Anesthesia: Height & Weight Height 5 ft 9 in 02/03/25 07:09 Weight: 83 kg 02/03/25 07:09 Body Mass Index (BMI) 27.0 02/03/25 07:09 Respiratory Assessment Respiratory Assessment - spanish interpreter/translator: Respiratory Tract Infection Hx - spanish interpreter/translator Hx Respiratory Tract Infection No 01/29/25 14:05 STOP Sleep Apnea STOP Sleep Apnea - spanish interpreter/translator: STOP Sleep Apnea - spanish interpreter/translator Hx Hypertension No 01/29/25 14:05 Hx Sleep Apnea No 01/29/25 14:05 CPAP BIPAP Do you snore loudly (louder No 01/29/25 14:05 than talking or can be heard Do you often feel tired/ No 01/29/25 14:05 fatigued/ sleepy during daytime? Has anyone observed you stop No 01/29/25 14:05 breathing during sleep? STOP Results Negative 01/29/25 14:05 QUESTION #5 FULL TEXT : Do you snore loudly (louder than talking or can be heard through closed doors)? Tobacco Use History Tobacco Use History - spanish interpreter/translator: Tobacco Use History - spanish interpreter/translator Tobacco Use Smoking Status Never smoker 01/29/25 14:05 Hx Tobacco Use No 01/29/25 14:05 Years Smoking Packs Smoked per Day Smoking Cessation Date was within the last 15 years Hx Smoking Cessation Date Hx Smoking Cessation Counseling Hematologic Medial History Hematologic Hx - spanish interpreter/translator: Hematologic Medical Hx - cleaning laborer Hx of Blood Transfusion No 01/29/25 14:05 Hx of Transfusion in last 3 No 01/29/25 14:05 Months Date of Last Transfusion (if within last 3 months) Ever experience any problems No 01/29/25 14:05 with transfusion(s)? Specify any problems Hx of Preganancy in last 3 N/A 01/29/25 14:05 Months Nurse Filling Out Transfusion DSCHRIBER 01/29/25 14:05 & Questions: Date: 01/29/25 01/29/25 14:05 Time: 14:07 01/29/25 14:05 Patient unable to answer at this time (ie. confused, unrespo /Reproduction History /Reproductive History - spanish interpreter/translator: /Reproductive Hx- spanish interpreter/translator Hx Now No 01/29/25 14:05 Gestational Age (in weeks): EDC: Hx Hx Para Hx Section SAB No 01/29/25 14:05 Active Medications Active Medications: Current Medications Generic Name Dose Route Start Last Admin Trade Name Freq PRN Reason Stop Dose Admin Lactated Ringer's 1,000 mls @ 15 mls/hr 02/03/25 07:00 IV .Q48H LUCIA PFSH Medical History Wears glasses Alcohol use History of steroid therapy Back pain History of pain when walking Non-smoker Home Medications ?Medication ?Instructions ?Recorded ?Last Taken ?Type meloxicam 15 mg tablet 15 mg PO QDAY PRN pain 09/03/24 Unknown History multivitamin (Daily Multi-Vitamin 1 tab PO DAILY 01/29/25 Unknown History tablet) Allergy/AdvReac Type Severity Reaction Status Date / Time No Known Allergies Allergy Verified 01/29/25 14:04 Surgical History (Updated 01/29/25 @ 14:10 by Ashley Brown) No history of previous surgery Social History Smoking Status: Never smoker Review of Systems (Anesthesia) ROS Narrative System reviewed and no additional complaints, except as documented. Physical Exam Const alert, oriented x3 and average body habitus Resp normal respiratory effort, normal air movement and clear to auscultation bilaterally Cardio regular rate, regular rhythm, no murmurs and diaphoretic
--- NOTE | 2025-02-03 08:00 | RAD_ITS ---
EXAM: XR Lumbosacral Spine, 2 or 3 Views CLINICAL INDICATION: LUMBAR TRANS EPIDURAL L4, L5 S1 TECHNIQUE: Frontal views of the lumbar spine and sacrum. COMPARISON: No relevant prior studies available. FINDINGS: VERTEBRAE: Unremarkable. No acute fracture. Normal alignment. SACRUM/COCCYX: Unremarkable as visualized. No acute fracture. DISC SPACES: No acute findings. No significant narrowing. SOFT TISSUES: Unremarkable. OTHER FINDINGS: Fluoroscopic images were used intraoperatively for guidance. Total of 3 images were obtained. Total fluoroscopy time 25.3 seconds. Total radiation dose 6.63 mGy. RAD/Lumbar Spine 2 or 3 Views IMPRESSION: Fluoroscopic guidance was used intraoperatively. Please refer to the operative note for further details. Reading Location: [facility]
[2025-02-03] MEDS: Bupivacaine 0.25% 30 ML Vial (08:05)
[2025-02-03] MEDS: Lidocaine 1% (5 ml sdv) 5 ML Vial (08:05)
--- NOTE | 2025-02-03 08:16 | OP.PCM_ITS ---
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 Type of Anesthesia: Local MAC RN Documented Start/Stop Times: Operation Date: 02/03/25 08:25 Case Time Into Pre-Op 02/03/25 07:00 Anesthesia Start 02/03/25 07:59 Into Room 02/03/25 07:59 Procedure Start 02/03/25 08:02 Procedure End 02/03/25 08:08 Anesthesia End 02/03/25 08:11 Out of Room 02/03/25 08:11 Into Recovery 02/03/25 08:15 Procedure Start Time: 08:27 Procedure Stop Time: 08:27 Select all DRAINS/GRAFTS/IMPLANTS that apply: None Estimated Blood Loss: 1 Specimen collected: No Description of surgery: PROCEDURE PERFORMED: Right-sided lumbar transforaminal epidural steroid injection, L4-5 and L5-S1. ANESTHESIA: MAC BLOOD LOSS: none COMPLICATIONS: none DESCRIPTION OF PROCEDURE: History and physical of today was reviewed. Risks and benefits of the procedure were explained. The patient understood and agreed to proceed. Informed consent was obtained. IV inserted per routine protocol. The patient was taken to the operating room and placed in the prone position with a pillow positioned underneath the abdomen. The right side of the lower back was prepped and draped in a sterile fashion using iodine x3. Under fluoroscopy guidance on oblique view, the L4 through S1 vertebral bodies were visualized. The skin and subcutaneous tissue was anesthetized with approximately 5 mL of 1% lidocaine using a 25-gauge regular needle. Under direct visualization with fluoroscopy at approximately 35-degree angle, starting on the right L4, ending on the right L5, using a 22-gauge 5-inch spinal needle, the needle was advanced via the skin. The tip of the needle was maneuvered and directed towards the inferior and medial gutter of the transverse process at the superiormost aspect of the neural foramen. Once the tip of the needle was at the vicinity of the foramen, after negative aspiration for blood or CSF, a total of 1 mL of contrast was injected in divided doses between both levels to confirm correct placement of the needle as well as medial spread. The confirmation was obtained on AP as well as lateral view. After repeated negative aspiration and confirmation on AP as well as lateral view, a total of 6 mL of preservative-free 0.25% Marcaine with 80 mg of Depo-Medrol was injected in divided doses between both levels. The needles were then removed intact. The patient experienced no sign or symptoms of intrathecal or intravascular injection. The patient experienced no paresthesia. The procedure was completed without any apparent difficulty or any complications. The patient appeared to tolerate it well. Assessment and plan: This is a 34-year-old male with lumbosacral radiculopathy, lumbosacral degenerative disc disease, lumbosacral spinal stenosis, status post right-sided lumbar transforaminal epidural steroid injection L4-5, L5-S1, patient will continue his current medications, patient will follow-up in approximately 2 weeks for reevaluation. Surgical Findings: 0 Complications Complications: No Admit VTE Documentation VTE Present on Admission: No VTE Mechan Device Prophylaxis: None VTE Pharm Prophylaxis ordered?: No
--- NOTE | 2025-02-03 08:20 | PCM.POST.ANE ---
Anesthesia: Postop Eval I Current Vital Signs Temperature: 98.2 F Pulse Rate: 62 Blood Pressure: 114/81 Respiratory Rate: 16 Pulse Ox: 98 Oxygen Delivery Method: Room Air Assessment Airway patent: Yes Spontaneous unlabored respirations: Yes Mental status: Awake and Calm nausea: No Vomiting: No Anesthesia Complication: No Fluid Hydration Crystalloid volume administer (ml): 300 Total IV fluid infused: 300 Progress Note Anesthesia document: Postop Eval 1 completed: Yes
--- NOTE | 2025-02-03 09:00 | PCM.POSTANE2 ---
Anesthesia Postop Eval I Sum Postop Eval Completion status Anesthesia document: Postop Eval 1 completed: Yes Anesthesia Postop Eval I Summary Anesthesia Postop Eval I Summary: Anesthesia Postop Eval I: Assessment Summary Airway patent Yes 02/03/25 08:20 [email or web address] Spontaneous unlabored Yes 02/03/25 08:20 [email or web address] respirations Mental status Awake,Calm 02/03/25 08:20 [email or web address] nausea No 02/03/25 08:20 [email or web address] Vomiting No 02/03/25 08:20 [email or web address] Anesthesia Postop Eval I: Fluid Summary Crystalloid volume administer 300 02/03/25 08:20 [email or web address] (ml) Colloids volume administered ( ml) Blood Product volume administered (ml) Total IV fluid infused 300 02/03/25 08:20 [email or web address] Anesthesia Postop Eval I: Summary Notes Anesthesia Complication No 02/03/25 08:20 [email or web address] Anesthesia Complication Comment: Post-operative progress note Anesthesia: Postop Eval II Evaluation Mental status: Awake Pain Level: 0 nausea: No Vomiting: No Complications Anesthesia Complication: No
== END 2025-02-03 08:53 | disposition home or self-care (01) ==
LOC: SDC 06:51 → AC 06:52
PROVIDERS: PCP Family Medicine; Referring Provider Anesthesiology Pain Medicine; Visit Provider Anesthesiology Pain Medicine
PROC: 3E0S3BZ Introduction of Anesthetic Agent into Epidural Space, Percutaneous Approach (ICD-10-PCS; CPT 64484; principal; 2025-02-03 08:20)
DX: M48.07 Spinal stenosis, lumbosacral region (principal); M51.17 Intervertebral disc disorders with radiculopathy, lumbosacral region
CPT/HCPCS: 64484; 64483; 72100

== ENCOUNTER 2025-05-01 09:00 | Outpatient (RCR) | payer OTHER, SELFPAY ==
--- NOTE | 2025-02-19 10:58 | HP.PTEVAL_ITS ---
Patient's Visit Information Visit Information Visit Information: DEONNA MCDANIEL is a 34 year old M referred to Physical Therapy by Dr. Lori Peterson MD with a diagnosis of SPINAL STENOSIS WITHOUT CLAUDICATION. Date of Evaluation: 02/19/25 Physical Therapist: Miguel Branham, PT, Cert MDT, OCS Visit Plan Frequency: 2x /Week Duration: 4 Weeks Plan: PT INTERVENTIONS ZABRINA EX'S ,POSTURAL EX'S ,DLS , LE FLEXABILITY AND MODALITIES Subjective Subjective: This 34 y/o male presents to physical therapy with lumbar radiculopathy. Patient developed lumbar radiculopathy May after he did a 100 mile bike ride. 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 Patient tried PT was getting better. But pain was intermittent then worse. Then had MRI L4-5 protruding disc .Patient had epidural injection Monday which helped. Patient located symptoms ache symmetrical right glut hamstrings ,calf and tingle /paresthesia foot. Aggravating bending ,lifting , sitting and job demands and standing ,driving . Alleviating walking ,moving. Coughing/sneezing+. Bowel/bladder-. Patient has meloxicam prn. Patient DR recommended PT . Patient hobbies running and biking 100 miles . Patient pain affects QOL and function / return hobbies . SOCAIL: VOCATION: Own Business Pain Bilateral Back: Pain Intensity (Out of 10): 2 Pain Intensity Range: 10 Right Lower Extremity: Pain Intensity (Out of 10): 2 Pain Intensity Range: 10 Right Foot: Pain Intensity (Out of 10): 3 Pain Intensity Range: 10 Objective Objective: POSTURE: mild forward posture GAIT: reciprocal pattern sight antalgic gait NEURO: c/o paresthesia/tingling right foot ,reflexes L3-4,L4-5,L5- S1 2/3 SYMMETRIES: align FLEXABILITY: hamstrings min/mod MMT: quads/hams 4/5 ,hip flexion 4/5 ,ankle 5/5 LUMBAR ROM: flexion min loss ,extension min loss ,side glides min loss Special Tests L/S Slump test left side: Negative L/S Slump test right side: Negative L/S Left Straight Leg Raise: Negative L/S Right Straight Leg Raise: Negative Lumbar Standing: Flexion - Mechanical Response: No effect Lumbar Standing: Flexion - Symptoms During Testing: Increases Lumbar Standing: Flexion - Symptoms After Testing: Worse Lumbar Standing: Extension - Mechanical Response: No effect Lumbar Standing: Extension - Symptoms During Testing: Decreases Lumbar Standing: Extension - Symptoms After Testing: No better Lumbar Standing: Right Side Glides - Mechanical Response: No effect Lumbar Standing: Right Side [place] - Symptoms During Testing: Increases Lumbar Standing: Right Side [place] - Symptoms After Testing: Worse Lumbar Standing: Left Side [place] - Symptoms During Testing: Increases Lumbar Standing: Left Side [place] - Symptoms After Testing: Worse Lumbar Lying: Flexion - Mechanical Response: No effect Lumbar Lying: Flexion - Symptoms During Testing: Increases Lumbar Lying: Flexion - Symptoms After Testing: Worse Lumbar Lying: Extension - Mechanical Response: No effect Lumbar Lying: Extension - Symptoms During Testing: Abolishes Lumbar Lying: Extension - Symptoms After Testing: Better Comments:: progression of forces Balance/Special Test Scores Oswestry Low Back Score: 14 Goals Goal 1:: Patient to be I with HEP back Goal Time Frame: 4-6 Weeks Goal 2:: Patient to be I with HEP for posture /body mechanics 100 % Goal Time Frame: 4-6 Weeks Goal 3:: Patient to improve lumbar ROM for function of recovery for job demands and housework Goal Time Frame: 4-6 Weeks Goal 4:: Patient to improve back oswestry score by 5 points to improve QOL Goal Time Frame: 4-6 Weeks Goal 5:: Patient to demonstrate 90% improvement with improved function and return to hobbies Goal Time Frame: 4-6 Weeks Rehabilitation Potential Physical Therapy Diagnosis: This patient has derangement below knee with HNP with symptoms worse with positioning /motioning testing better walking and worse bending /sitting thus benefit from skilled PT Rehabilitation Potential: Good Anticipated Interventions Patient/Client Instruction: Educate patient on: Condition and Plan of Care For the Purpose of:: To decrease pain, To increase ROM, To improve muscle performance and motor function, To improve ability to perform ADL's, To increase tolerance to activity/condition/position, To improve ability of physical actions for home/community/work/leisure, To increase flexibility/ROM, To improve endurance and To improve tolerance to ADL's Therapeutic Exercise to Include: Strength training, Postural training, Flexibilty training, Dynamic Lumbar Stabilization and Zabrina Exercises For the Purpose of:: To decrease pain, To improve muscle performance and motor function, To improve ability to perform ADL's, To increase tolerance to activity/condition/position, To improve ability of physical actions for home/c ommunity/work/leisure, To improve health of tissue, To decrease soft tissue restriction and To increase flexibility/ROM TENS: Yes IF ES: Yes Thermo therapy (hot pack): Yes Ultrasound (thermal/non thermal): Yes For the Purpose of:: To decrease pain, To increase ROM, To improve health of tissue, To decrease soft tissue restriction and To improve tolerance to ADL's Text: Thank you for the opportunity to evaluate your patient. For Medicare and Medicare HMO plans, please review the plan of care and approve it. It will need to be FAXED BACK to us at [phone] for Medicare purposes. For Medicare only, by signing this I certify the plan of care. Please let me know if there are questions or concerns regarding this plan of care. Physician Signature: Date:____
--- NOTE | 2025-05-01 09:30 | HP.PTDCSUM ---
Discharge Summary D/C summary: It has been my pleasure to treat DEONNA MCDANIEL referred by Dr. Lori Peterson MD, with the diagnosis of SPINAL STENOSIS WITHOUT CLAUDICATION for a total of 17 visit(s). Discharge Date: 05/01/25 Please see the following information for a summary of their discharge status. Subjective Subjective: Doing well Pain Bilateral Back: Pain Intensity (Out of 10): 1 Right Lower Extremity: Pain Intensity (Out of 10): 1 Right Foot: Pain Intensity (Out of 10): 1 Overall Improvement % Improvement: 90 Objective Objective/Function: POSTURE: mild forward posture GAIT: reciprocal pattern sight antalgic gait NEURO: c/o paresthesia/tingling right foot ,reflexes L3-4,L4-5,L5- S1 2/3 SYMMETRIES: align FLEXABILITY: hamstrings min MMT: quads/hams 4/5 ,hip flexion 4/5 ,ankle 5/5 LUMBAR ROM: flexion WFL ,extension WFL ,side glides min loss Goals Goal 1:: Patient to be I with HEP back Goal Progress: Goal Met Goal 2:: Patient to be I with HEP for posture /body mechanics 100 % Goal Progress: Goal Met Goal 3:: Patient to improve lumbar ROM for function of recovery for job demands and housework Goal Progress: Goal Met Goal 4:: Patient to improve back oswestry score by 5 points to improve QOL Goal Progress: Goal Met Goal 5:: Patient to demonstrate 90% improvement with improved function and return to hobbies Goal Progress: Goal Met Plan Plan: D/C D/C Information Discharge Comments: HEP d/c sentence: If there are questions or concerns regarding this patient's physical therapy, please feel free to call me at [phone]. Thank you for the referral of this patient. Sincerely, Miguel Branham, PT, Cert MDT, OCS Balance/Gait/Functional tests Balance/Special Test Scores Oswestry Low Back Score: 0 Improvement % Improvement: 90
== END 2025-05-01 19:00 | disposition home or self-care (01) ==
LOC: PT 09:00
PROVIDERS: PCP Family Medicine; Referring Provider Family Medicine; Visit Provider Family Medicine
DX: M48.061 Spinal stenosis, lumbar region without neurogenic claudication (principal)
CPT/HCPCS: 97110; 97162; 97530

== ENCOUNTER → 2025-06-06 | Outpatient (CLI) | payer OTHER, SELFPAY ==
[2025-06-06 10:43] LABS: Hematocrit 45.4 % (40-54); Hemoglobin 15.2 g/dL (13.0-16.5); Immature Granulocytes Count 0.010 X10^3/uL (0.0-0.0); Mean Corp Hgb Conc 33.5 g/dL (32-36); Mean Corpuscular Volume 95.2 fL (80-94); Mean Platelet Vol. 9.6 fl (6.2-12.0); NRBC Flagged by Analyzer 0 % (0-5); Platelet Count 274 K/mm3 (150-450); RBC Distribution Width CV 11.5 % (11.6-14.6); RBC Distribution Width SD 40.0 fl (35.1-43.9); Red Blood Count 4.77 M/mm3 (4.6-6.2); White Blood Count 6.1 K/mm3 (4.4-11.0)
[2025-06-06 12:59] LABS: CPK Total, Creatine Kinase 335 U/L (24-195); Cholesterol 94 mg/dL (<=200); Low Density Lipoprotein Calc. 25 mg/dL; Triglycerides 23 mg/dL; Very Low Density Lipoprotein 5 mg/dL (5-40); cholesterol:hdl ratio screen 1.46
[2025-06-06 13:16] LABS: AST(SGOT) 37 U/L (<=37); Alanine Aminotransfer ALT/SGPT 29 U/L (<=46); Albumin, Serum 4.3 g/dL (3.5-5.0); Alkaline Phosphatase 38 U/L (40-129); Anion Gap 15 (5-15); BUN 17 mg/dL (4-19); BUN/Creat Ratio 20.0 RATIO (10-20); Calcium,Total 8.8 mg/dL (7.6-11.0); Carbon Dioxide 21.1 mmol/L (21.0-32.0); Chloride 102 mmol/L (98-108); Globulin 1.2 g/dL (2.2-4.2); Glucose 86 mg/dL (70-99); Potassium 4.2 mmol/L (3.3-5.1)
== END | disposition home or self-care (01) ==
LOC: MTLAB 09:04
PROVIDERS: PCP Family Medicine; Referring Provider Family Medicine; Visit Provider Family Medicine
DX: Z00.00 Encounter for general adult medical examination without abnormal findings (principal); M79.10 Myalgia, unspecified site
CPT/HCPCS: 36415; 80053; 80061; 82550; 85025

== ENCOUNTER → 2025-06-20 | Outpatient (CLI) | payer OTHER, SELFPAY ==
[2025-06-20 13:19] LABS: AST(SGOT) 31 U/L (<=37); Alanine Aminotransfer ALT/SGPT 26 U/L (<=46); Albumin, Serum 4.3 g/dL (3.5-5.0); Alkaline Phosphatase 41 U/L (40-129); Anion Gap 9 (5-15); BUN 14 mg/dL (4-19); BUN/Creat Ratio 16.7 RATIO (10-20); Calcium,Total 9.5 mg/dL (7.6-11.0); Carbon Dioxide 26.2 mmol/L (21.0-32.0); Chloride 103 mmol/L (98-108); Cholesterol 141 mg/dL (<=200); Globulin 2.6 g/dL (2.2-4.2); Glucose 89 mg/dL (70-99); Low Density Lipoprotein Calc. 58 mg/dL; Potassium 4.1 mmol/L (3.3-5.1); Triglycerides 37 mg/dL; Very Low Density Lipoprotein 7 mg/dL (5-40); cholesterol:hdl ratio screen 1.91
== END | disposition home or self-care (01) ==
LOC: MTLAB 10:32
PROVIDERS: PCP Family Medicine; Referring Provider Family Medicine; Visit Provider Family Medicine
DX: R74.8 Abnormal levels of other serum enzymes (principal)
CPT/HCPCS: 36415; 80053; 80061